=== PATIENT | male | born 1990 | race Caucasian/White ===

== ENCOUNTER 2020-12-23 09:43 | Emergency (ER) | payer SELFPAY ==
[~2020-12-23] VITALS: Ht 172.7 cm; Wt 81.6 kg
[2020-12-23] MEDS ORDERED: CYCLOBENZAPRINE5 M3 PO (11:44)
== END 2020-12-23 12:15 | disposition home or self-care (01) ==
LOC: ED 09:43
DX: M94.0 Chondrocostal junction syndrome [Tietze] (principal)